=== PATIENT | male | born 1990 | race Caucasian/White ===

== ENCOUNTER → 2019-10-01 | Outpatient (CLI) | payer OTHER | LOC: COL.CARD 12:49 | DX: S06.9X0A Unspecified intracranial injury without loss of consciousness, initial encounter (principal); R56.9 Unspecified convulsions ==

== ENCOUNTER → 2019-10-21 | Outpatient (CLI) | payer OTHER | LOC: COL.RAD 10:02 | DX: S06.9X0A Unspecified intracranial injury without loss of consciousness, initial encounter (principal) | CPT/HCPCS: A9585 ==